=== PATIENT | male | born 1985 | race Caucasian/White ===

== ENCOUNTER 2017-05-19 18:03 | Emergency (ER) | payer OTHER ==
[~2017-05-19] VITALS: Ht 182.9 cm; Wt 97.5 kg
--- OUTSIDE RECORDS SUMMARY | ~2017-05-19 | XMS | Clinical Summary ---
Demographics + + + | Address | [address] | | | [place] [address] | + + + | Home Phone | | + + + | Preferred Language | Unknown | + + + | Marital Status | | + + + | Lutheran Affiliation | TEMPLE | + + + | Race | White | + + + | Ethnic Group | Not or | + + + Author + + + | Author | [facility] | + + + | Organization | [facility] | + + + | Address | Unknown | + + + | Phone | Unavailable | + + + Support + + +---------+ + | Name | Relationship | Address | Phone | + + +---------+ + | EMORY MORALES | ECON | Unknown | | + + +---------+ + Care Team Providers + +------+ + | Care Nursing Home Assistant Administrator Name | Role | Phone | + +------+ + | None Per Patient, None Per | PP | Unavailable | | Pt | | | + +------+ + Allergies + + + + + + | Active Allergy | Reactions | Severity | Noted | Comments | | | | | Date | | + + + + + + | Penicillins | Rash | Medium | 02/25/20 | | | | | | 15 | | + + + + + + Current Medications + + +--------+---------+------+------+-------+ | Prescription | Sig. | Disp. | Refills | Star | End | Statu | | | | | | t | Date | s | | | | | | Date | | | + + +--------+---------+------+------+-------+ | azithromycin | Take 2 tablets today | 2 | 0 | 12/2 | | Activ | | (ZITHROMAX) 500 mg | | tablet | | 6/20 | | e | | tablet | | | | 15 | | | + + +--------+---------+------+------+-------+ | azithromycin | Take 2 tablets today | 2 | 0 | 12/2 | | Activ | | (ZITHROMAX) 500 mg | | tablet | | 9/20 | | e | | tablet | | | | 15 | | | + + +--------+---------+------+------+-------+ | | Take 1-2 tablets by | 20 | 0 | 08/0 | | Activ | | HYDROcodone-acetamin | mouth every 6 hours | tablet | | 3/20 | | e | | ophen (NORCO) 5-325 | as needed for Pain | | | 17 | | | | mg per tablet | | | | | | | + + +--------+---------+------+------+-------+ + + +-------+ +------+------+-------+ | Hospital, Clinic, or | Ordered | Route | Frequency | Star | End | Statu | | Other Facility | Dose | | | t | Date | s | | Administered | | | | Date | | | | Medication | | | | | | | + + +-------+ +------+------+-------+ | cefTRIAXone | 250 mg | IM | ONCE | 12/ | | Activ | | (ROCEPHIN) injection | | | | 9/20 | | e | | 250 mg | | | | 15 | | | + + +-------+ +------+------+-------+ Active Problems Not on file Social History + +-------+ +--------+------+ | Tobacco Use | Types | Packs/Day | Years | Date | | | | | Used | | + +-------+ +--------+------+ | Former Smoker | | | | | + +-------+ +--------+------+ + + + | Sex Assigned at | Date Recorded | | | | + + + | Not on file | | + + + Last Filed Vital Signs + + + + | Vital Sign | Reading | Time Taken | + + + + | Blood Pressure | 140/70 | 10/02/2016 7:33 PM PDT | + + + + | Pulse | 63 | 10/02/2016 7:33 PM PDT | + + + + | Temperature | 36.8 C (98.2 F) | 10/02/2016 7:33 PM PDT | + + + + | Respiratory Rate | 16 | 10/02/2016 7:33 PM PDT | + + + + | Oxygen Saturation | 97% | 10/02/2016 7:33 PM PDT | + + + + | Inhaled Oxygen | - | - | | Concentration | | | + + + + | Weight | 91.8 kg (202 lb 6.4 | 02/24/2015 3:31 PM PST | | | oz) | | + + + + | Height | - | - | + + + + | Body Mass Index | - | - | + + + + Plan of Treatment + + + + + | Health Maintenance | Due Date | Last Done | Comments | + + + + + | Tetanus | | | | | | 5 | | | + + + + + | IMM Influenza (#1) | | | | | | 7 | | | + + + + + | HIV Screening | Completed | 01/14/2016 | | + + + + + Results Not on filefrom Last 3 Months Insurance + +--------+ +--------+ + + | Payer | Benefi | Subscriber | Type | Phone | Address | | | t Plan | ID | | | | | | / | | | | | | | Group | | | | | + +--------+ +--------+ + + | [employer] | PROVID | [id number] | Indemn | [phone] | [address] | | PLAN | [place] | | ity | [address] | [place], [place] | | | [place] | | | | [address] | | | [place] | | | | | | | [place] | | | | | + +--------+ +--------+ + + + +--------+ +--------+ + + | Guarantor Name | Accoun | Relation to | Date | Phone | Billing Address | | | t Type | Patient | of | | | | | | | | | | + +--------+ +--------+ + + | OLGA MORALES | Person | Self [birth year] | Home: | [address] | | | al/Fam | | 1985 | +- | [place] [address] | | | lara | | | [phone] | | + +--------+ +--------+ + + | OLGA MORALES | GH | Self | [birth year] | Home: | [address] | | | Person | | 1985 | +- | [place] [address] | | | al/Fam | | | [phone] | | | | lara | | | | | + +--------+ +--------+ + +"
--- OUTSIDE RECORDS SUMMARY | ~2017-05-19 | XMS | Clinical Summary ---
Demographics + + + | Address | [address] | | | [place] [address] | + + + | Home Phone | | + + + | Preferred Language | Unknown | + + + | Marital Status | | + + + | Shinto Affiliation | YARSANI | + + + | Race | [...] Team Providers + +------+ + | Care Stripper Color Name | Role | Phone | + [...] | + +--------+ +--------+ + + | [employer] | PROVID | [id number] | Indemn | [phone] | [address] | | PLAN | [place] | | ity | [phone] | [place], [place] | | | [place] | | | | [phone] | | | [place] | | | [...] | [birth year] | Home: | [address] | | | al/Fam | | 1985 | +- | [place] [address] | | | lara | | | [phone] | | + +--------+ +--------+ + + | OLGA MORALES | GH | Self | [birth year] | Home: | [address] | | | Person | | 1985 | +- | [place] [address] | | | al/Fam | | | [phone] | | | | [place]a | | | | | + +--------+ +--------+ + +"
--- NOTE | 2017-05-20 08:26 | EKG ---
[facility] [address] [facility] [place] [address] Signed Normal sinus rhythm Normal ECG No previous ECGs available Confirmed by VICKI GOOD MD ([id number]) on 05/20/2017 8:25:54 AM Electronically Signed By: VICKI GOOD MD 05/20/17 0826 PATIENT NAME: OLGA MORALES Electrocardiogram DATE OF : [birth year] PHYSICIAN: VICKI GOOD MD REPORT #: [id number] REPORT IS CONFIDENTIAL AND NOT TO BE RELEASED WITHOUT AUTHORIZATION
== END 2017-05-19 21:04 | disposition home or self-care (01) ==
LOC: ED 18:03
DX: R07.89 Other chest pain (principal); Z87.891 Personal history of nicotine dependence; Z88.0 Allergy status to penicillin
CPT/HCPCS: 71046; 80053; 84484; 85025; 85379; 93005; 93010; 99284

== ENCOUNTER 2017-08-29 18:14 | Emergency (ER) | payer OTHER ==
[~2017-08-29] VITALS: Ht 182.9 cm; Wt 93.0 kg
== END 2017-08-29 19:12 | disposition home or self-care (01) ==
LOC: ED 18:14
DX: S43.101A Unspecified dislocation of right acromioclavicular joint, initial encounter (principal); Z87.891 Personal history of nicotine dependence; Z88.0 Allergy status to penicillin; X58.XXXA Exposure to other specified factors, initial encounter; Y93.72 Activity, wrestling
CPT/HCPCS: 73030; 99283

== ENCOUNTER 2018-12-01 19:52 | Emergency (ER) | payer BC ==
[~2018-12-01] VITALS: Ht 182.9 cm; Wt 93.0 kg
[2018-12-01] MEDS ORDERED: ESCITALOPRAM OX10 MG PO (20:07)
[2018-12-01] MEDS ORDERED: QUETIAPINE FUMA50 MG PO (20:09)
[2018-12-01] MEDS ORDERED: OMEPRAZOLE20 MG PO (21:16)
--- NOTE | 2018-12-03 13:06 | EKG ---
[facility] [address] [facility] [place], [place] [address] Signed Normal sinus rhythm Normal ECG When compared with ECG of 19-MAY-2017 18:05, No significant change was found Confirmed by DANNA NAVA DO ([id number]) on 12/03/2018 1:06:17 PM Electronically Signed By: DANNA NAVA DO 12/03/18 1306 PATIENT NAME: OLGA MORALES DORIS Electrocardiogram DATE OF : [birth year] PHYSICIAN: DANNA NAVA DO REPORT #: [id number] REPORT IS CONFIDENTIAL AND NOT TO BE RELEASED WITHOUT AUTHORIZATION
== END 2018-12-01 22:16 | disposition home or self-care (01) ==
LOC: ED 19:52
DX: K27.9 Peptic ulcer, site unspecified, unspecified as acute or chronic, without hemorrhage or perforation (principal); K31.9 Disease of stomach and duodenum, unspecified; F41.9 Anxiety disorder, unspecified; Z88.0 Allergy status to penicillin; Z79.899 Other long term (current) drug therapy
CPT/HCPCS: 71045; 80053; 83690; 83735; 84484; 85025; 93005; 93010; 96374; 96375; 96376; 99284-25; C9113; J1170; J2405; J7030

== ENCOUNTER 2018-12-03 12:48 | Emergency (ER) | payer BC ==
[~2018-12-03] VITALS: Ht 182.9 cm; Wt 106.6 kg
[~2018-12-03 12:48] MED LIST: ESCITALOPRAM OX10 MG PO; OMEPRAZOLE20 MG PO; QUETIAPINE FUMA50 MG PO
--- OUTSIDE RECORDS SUMMARY | 2018-12-03 12:50 | XMS ---
PreManage Notification: OLGA MORALES Security Marker Maker Events No recent Security Events currently on file CRITERIA MET - [facility] - 2 Visits in 30 Days CARE PROVIDERS BRITTANEY BROCK [facility] Current PHONE: Unknown Vianney has no Care Guidelines for this patient. Ciaran VISIT COUNT (12 MO.) 2 [facility] TOTAL 2 NOTE: Visits indicate total known visits. ED/UCC VISIT TRACKING (12 MO.) 12/03/2018 12:48 [facility] [place] TYPE: Emergency COMPLAINT: - CHEST PAIN 12/01/2018 19:53 [facility] [place] TYPE: Emergency COMPLAINT: - SOB/CHEST PAIN/NUMBNESS INPATIENT VISIT TRACKING (12 MO.) No inpatient visits to display in this time frame [email or web address]
--- NOTE | 2018-12-04 14:51 | EKG ---
[facility] [address] [facility] [place], [place] [address] Signed Sinus bradycardia Otherwise normal ECG No previous ECGs available Confirmed by DANNA NAVA DO ([id number]) on 12/04/2018 2:50:54 PM Electronically Signed By: DANNA NAVA DO 12/04/18 1451 PATIENT NAME: OLGA MORALES Electrocardiogram DATE OF : [birth year] PHYSICIAN: DANNA NAVA DO REPORT #: [id number] REPORT IS CONFIDENTIAL AND NOT TO BE RELEASED WITHOUT AUTHORIZATION
== END 2018-12-03 15:56 | disposition home or self-care (01) ==
LOC: ED 12:48
DX: R10.13 Epigastric pain (principal); F43.10 Post-traumatic stress disorder, unspecified; F41.9 Anxiety disorder, unspecified; Z88.0 Allergy status to penicillin; Z79.899 Other long term (current) drug therapy
CPT/HCPCS: 71045; 80053; 83690; 83735; 84484; 85025; 93005; 93010; 96374; 96375; 99284-25; C9113; J1885; J2550

== ENCOUNTER 2019-10-21 22:54 | Emergency (ER) | payer OTHER ==
[~2019-10-21] VITALS: Ht 182.9 cm; Wt 98.9 kg
[~2019-10-21 22:54] MED LIST changes: +NORCO 10-325 T1 EACH PO
[2019-10-22] MEDS ORDERED: PERCOCET 5-3251 EACH PO (00:28)
[2019-10-22] MEDS ORDERED: CRUTCH1 EACH MISC (00:29)
== END 2019-10-22 01:10 | disposition home or self-care (01) ==
LOC: ED 22:54
DX: S82.851A Displaced trimalleolar fracture of right lower leg, initial encounter for closed fracture (principal); F41.9 Anxiety disorder, unspecified; Z87.891 Personal history of nicotine dependence; Z88.0 Allergy status to penicillin; Z79.899 Other long term (current) drug therapy; W01.0XXA Fall on same level from slipping, tripping and stumbling without subsequent striking against object, initial encounter
CPT/HCPCS: 73610; J1170

== ENCOUNTER 2020-10-15 14:29 | Emergency (ER) | payer OTHER ==
[~2020-10-15] VITALS: Ht 182.9 cm; Wt 98.9 kg
[~2020-10-15 14:29] MED LIST changes: +CRUTCH1 EACH MISC; +PERCOCET 5-3251 EACH PO
[2020-10-15] MEDS ORDERED: CLONIDINE HCL0.1 MG PO (14:58)
[2020-10-15] MEDS ORDERED: DULOXETINE HCL60 MG PO (14:59)
[2020-10-15] MEDS ORDERED: ELIQUIS5 MG PO (16:44)
== END 2020-10-15 16:52 | disposition home or self-care (01) ==
LOC: ED 14:29
DX: I82.4Z2 Acute embolism and thrombosis of unspecified deep veins of left distal lower extremity (principal); F43.10 Post-traumatic stress disorder, unspecified; Z88.0 Allergy status to penicillin; Z79.899 Other long term (current) drug therapy
CPT/HCPCS: 73590; 93971; 99284-25

== ENCOUNTER 2020-10-16 14:15 | Emergency (ER) | payer OTHER ==
[~2020-10-16] VITALS: Ht 182.9 cm; Wt 108.9 kg
[~2020-10-16 14:15] MED LIST changes: +CLONIDINE HCL0.1 MG PO; +DULOXETINE HCL60 MG PO; +ELIQUIS5 MG PO
--- OUTSIDE RECORDS SUMMARY | 2020-10-16 14:18 | XMS ---
PreManage Notification: OLGA MORALES Security Applications Support Specialist Events No recent Security Events currently on file CRITERIA MET - [facility] - 2 Visits in 30 Days CARE PROVIDERS HARPER CHEEK Physician Regional Coordinator 12/06/2018-Current PHONE: Unknown BRITTANEY BROCK [facility] Current PHONE: [phone] Vianney has no Care Guidelines for this patient. Ciaran VISIT COUNT (12 MO.) [address] [place] [address] TOTAL 3 NOTE: Visits indicate total known visits. ED/UCC VISIT TRACKING (12 MO.) 10/16/2020 14:16 [facility] [place] TYPE: Emergency COMPLAINT: - SHORTNESS OF BREATH 10/15/2020 14:30 [facility] [place] TYPE: Emergency COMPLAINT: - LEFT LEG PAIN 10/21/2019 22:54 [facility] [place] TYPE: Emergency COMPLAINT: - LEG PAIN/INJ DIAGNOSES: - Anxiety disorder, unspecified - Fall on same level from slipping, tripping and stumbling without subsequent striking against object, initial encounter - Personal history of nicotine dependence - Pain in right ankle and joints of right foot - Allergy status to penicillin - Displaced trimalleolar fracture of right lower leg, initial encounter for closed fracture - Other skilled nursing (current) drug therapy INPATIENT VISIT TRACKING (12 MO.) No inpatient visits to display in this time frame [email or web address]
--- NOTE | 2020-10-16 19:55 | EKG ---
[facility] [address] [facility] [place], [place] [address] Signed Normal sinus rhythm Normal ECG When compared with ECG of 03-DEC-2018 12:49, No significant change was found Confirmed by YENY LOYA MD ([id number]) on 10/16/2020 7:55:27 PM Electronically Signed By: YENY LOYA MD 10/16/201954 PATIENT NAME: OLGA MORALES DORIS Electrocardiogram DATE OF : [birth year] PHYSICIAN: YENY LOYA MD REPORT #: [id number] REPORT IS CONFIDENTIAL AND NOT TO BE RELEASED WITHOUT AUTHORIZATION
== END 2020-10-16 18:02 | disposition home or self-care (01) ==
LOC: ED 14:15
DX: R06.00 Dyspnea, unspecified (principal); M54.6 Pain in thoracic spine; Z88.0 Allergy status to penicillin; Z79.899 Other long term (current) drug therapy
CPT/HCPCS: 71045; 71260; 80053; 83735; 84484; 85025; 93005; 93010; 99285-25; Q9967

== ENCOUNTER 2020-12-20 16:06 | Emergency (ER) | payer OTHER ==
[~2020-12-20] VITALS: Ht 182.9 cm; Wt 108.9 kg
[2020-12-20] MEDS ORDERED: HYDROCODON-ACE1 EA11 PO (17:18)
[2020-12-20] MEDS ORDERED: CEPHALEXIN500 M1 PO (17:18)
== END 2020-12-20 17:51 | disposition home or self-care (01) ==
LOC: ED 16:06
DX: S61.432A Puncture wound without foreign body of left hand, initial encounter (principal); W32.0XXA Accidental handgun discharge, initial encounter; M81.0 Age-related osteoporosis without current pathological fracture; Z86.718 Personal history of other venous thrombosis and embolism; Z88.0 Allergy status to penicillin; Z79.01 Long term (current) use of anticoagulants; Z79.899 Other long term (current) drug therapy
CPT/HCPCS: 73130; 99284; A9270

== ENCOUNTER 2021-06-03 11:49 | Emergency (ER) | payer OTHER ==
[~2021-06-03] VITALS: Ht 182.9 cm; Wt 113.4 kg
[~2021-06-03 11:49] MED LIST changes: +CEPHALEXIN500 M1 PO; +HYDROCODON-ACE1 EA11 PO
[2021-06-03] MEDS ORDERED: BACTRIM DS TAB1 EACH PO (19:56)
[2021-06-03] MEDS ORDERED: HYDROCODON-ACE1 EA11 PO (19:59)
== END 2021-06-03 20:15 | disposition home or self-care (01) ==
LOC: ED 11:49
DX: L02.412 Cutaneous abscess of left axilla (principal); Z88.0 Allergy status to penicillin
CPT/HCPCS: 10060; 99282-25; A9270

== ENCOUNTER 2021-06-05 17:47 | Emergency (ER) | payer OTHER ==
[~2021-06-05] VITALS: Ht 182.9 cm; Wt 113.4 kg
[~2021-06-05 17:47] MED LIST changes: +BACTRIM DS TAB1 EACH PO
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
[2021-06-05] MEDS ORDERED: CLEOCIN HCL300 MG PO (21:29)
[2021-06-05] MEDS ORDERED: DOXYCYCLINE HY100 MG PO (21:29)
[2021-06-05] MEDS ORDERED: PERCOCET 5-3251 EACH PO (21:39)
== END 2021-06-05 22:48 | disposition home or self-care (01) ==
LOC: ED 17:47
DX: L02.412 Cutaneous abscess of left axilla (principal); M81.0 Age-related osteoporosis without current pathological fracture; Z86.718 Personal history of other venous thrombosis and embolism; Z88.0 Allergy status to penicillin; Z79.899 Other long term (current) drug therapy
CPT/HCPCS: 36415; 80048; 83605; 85025; 96374; 99283-25; J2270

== ENCOUNTER 2021-06-07 07:10 | Emergency (ER) | payer OTHER ==
[~2021-06-07] VITALS: Ht 182.9 cm; Wt 113.4 kg
[~2021-06-07 07:10] MED LIST changes: +CLEOCIN HCL300 MG PO; +DOXYCYCLINE HY100 MG PO
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
== END 2021-06-07 07:28 | disposition home or self-care (01) ==
LOC: ED 07:10
DX: Z48.817 Encounter for surgical aftercare following surgery on the skin and subcutaneous tissue (principal); F43.10 Post-traumatic stress disorder, unspecified; Z88.0 Allergy status to penicillin; Z79.899 Other long term (current) drug therapy
CPT/HCPCS: 99282

== ENCOUNTER 2025-02-21 19:11 | Emergency (ER) | payer OTHER ==
[~2025-02-21] VITALS: Ht 182.9 cm; Wt 111.1 kg
[~2025-02-21 19:11] MED LIST changes: +EPIPEN 2-P0.3 MG/0.3 IM
[2025-02-21] MEDS ORDERED: ALBUTEROL/IPRATROPIUM 3 ML NEB INH ONE (22:15)
[2025-02-21 22:57] LABS: INFLUENZA B NAA NEGATIVE (NEGATIVE); RESPIRATORY SYNCYTIAL VIR NAA NEGATIVE (NEGATIVE)
[2025-02-21] MEDS ORDERED: methylPREDNISolone 4 MG HOME.PACK PO ONE (23:45)
[2025-02-21] MEDS ORDERED: ALBUTEROL SULFATE 8 GM HOME.PACK INH ONE (23:45)
== END 2025-02-22 00:12 | disposition home or self-care (01) ==
LOC: ED 19:11
PROVIDERS: Family Medicine
DX: J40 Bronchitis, not specified as acute or chronic (principal); F43.10 Post-traumatic stress disorder, unspecified; Z88.0 Allergy status to penicillin; Z91.030 Bee allergy status; Z79.899 Other long term (current) drug therapy
CPT/HCPCS: 71045; 87502; 94640; 99285-25; U0002